=== PATIENT | male | born 1965 | race Caucasian/White ===

== ENCOUNTER 2022-11-04 15:31 | Outpatient (RCR) | payer BC, SELFPAY | END 2023-01-04 15:33 | disposition home or self-care (01) | LOC: PT 15:31 | PROVIDERS: PCP Family Medicine | DX: M54.2 Cervicalgia (principal) | CPT/HCPCS: 97012; 97110; 97140; 97162 ==

== ENCOUNTER 2024-10-14 20:05 | Emergency (ER) | payer OTHER, SELFPAY ==
[2024-10-14 20:20] VITALS: BP 130/86; PULSE 74; TEMP 36.9; O2SAT 96; BMI 27.9
--- NOTE | 2024-10-14 22:02 | PC.NURSE ---
patient push a car and heard a pop in leg
--- NOTE | 2024-10-14 22:08 | ED_ITS ---
HPI HPI - Extremity Injury (Lower) General Chief Complaint: Extremity Injury, Lower Stated Complaint: RIGHT LOWER EXTREMITY PAIN Time Seen by Provider: 10/14/24 21:44 Source: patient Mode of arrival: walk-in Limitations: no limitations History of Present Illness HPI Narrative: The patient is a very pleasant 59-year-old male who presents to the emergency department secondary to right calf pain. The patient stated a couple hours prior to arrival the patient was helping push a car. He stated that he planted his right foot and was leaning forward to try to push the car and when he went to push off on his foot he heard and felt a pop in his right calf below the muscle belly but not all the way to the ankle. Pain is a 2 out of 10. He states it is made worse in extreme ranges of motion. It is very difficult for him to walk because he cannot plantarflex or push off of his toe. He is never done anything like this before. When he was a child he had a tib-fib fracture. Related Data Home Medications ?Medication ?Instructions ?Recorded ?Confirmed No Known Home Medications 10/14/2409/17 Allergies Allergy/AdvReac Type Severity Reaction Status Date / Time No Known Drug Allergies Allergy Verified 10/14/24 20:19 Opioid HPI Opioid Management Most Recent Pain and Opioid Data: Last Pain Scale 3 10/14/24, 22:01 Review of Systems 2 ROS Narrative 10 Systems were reviewed, and unless not ed in the HPI, all other systems are reviewed, unremarkable, or noncontributory. PFSH PFS Social History Little interest or pleasure in doing things: not at all Feeling down, depressed, or hopeless: not at all Exam Narrative Exam Narrative: Prior to examining the patient, I have washed with hospital approved and provided Antiseptic Hand Instrument Technician Helper and have also applied gloves.? Prior to touching the patient, I asked for consent to examine the patient.? General: Alert and oriented, well nourished, mild distress. Eye: PERRL, EOMI, normal conjunctiva. HENT: Normocephalic, normal hearing, moist oral mucosa, no scleral icterus, Lungs: Clear to auscultation and percussion, non-labored respiration. Heart: Normal rate, regular rhythm, no murmur, gallop or edema. Musculoskeletal: Normal range of motion and strength, there is some swelling to the lower part of the patient's right calf. It is asymmetric to the left side. Patient Skin: Skin is warm, dry and pink, no rashes or lesions. Neurologic: Awake, alert, and oriented X3, CN II-XII intact. Psychiatric: Cooperative, appropriate mood and affect.? Following the conclusion of the examination, I have washed my hands thoroughly after removing examination gloves. Constitutional Vital Signs, click to edit/add: Last Vital Signs Temp 98.4 F 10/14/24 20:20 Pulse 74 10/14/24 20:20 Resp 16 10/14/24 20:20 BP 130/86 10/14/24 20:20 Pulse Ox 96 10/14/24 20:20 Course Course Hospital Course: I use an ultrasound to just look at the patient's cast. The patient definitely had more heterogeneous type of presentation in the right calf. This would be consistent with bleeding and increased edema. Vital Signs Vital signs: Vital Signs Temperature 98.4 F 10/14/24 20:20 Pulse Rate 74 10/14/24 20:20 Respiratory Rate 16 10/14/24 20:20 Blood Pressure 130/86 10/14/24 20:20 Pulse Oximetry 96 10/14/24 20:20 Temperature 98.4 F 10/14/24 20:20 Pulse Rate 74 10/14/24 20:20 Respiratory Rate 16 10/14/24 20:20 Blood Pressure 130/86 10/14/24 20:20 Pulse Oximetry 96 10/14/24 20:20 MDM - Extremity Injury (Lower) MDM Narrative Medical decision making narrative: The patient is a 59-year-old male who was pushing a car when he felt a sudden sharp pain in the back of his leg accompanying a pop. The patient stated he heard and felt it. Patient is having a difficult time ambulating since then. He states it swollen but has not improved yet. He states it is hard for him to plantarflex. Patient however does have FULL Range of Motion. Patient has a negative Adan Test. Differential Diagnosis Differential diagnosis: Likely ankle sprain and strain, acute internal derangem ent of knee, puncture wound of foot and ankle fracture Medical Records Attestation: I reviewed the patient's medical records. Imaging Data X ray Right Tib/fib: Attestation: I have reviewed the pertinent imaging results. Radiologist's impression: No acute bony process. ED physician US right calf: Attestation: I personally reviewed and interpreted this imaging study as follows: My impression: I personally used an ultrasound to compare the patient's right calf to the left calf. The patient has intact tendons however on the right side there appeared to be more of a heterogeneous fluid collection in the edema. Discharge Plan Discharge Chief Complaint: Extremity Injury, Lower Clinical Impression: Partial Achilles tendon tear Patient Disposition: Home, Self-Care Time of Disposition Decision: 22:11 Condition: Good Mode of Transportation: Private Vehicle Prescriptions / Home Meds: No Action No Known Home Medications Print Language: Citizen Of [place] Instructions: Achilles Tendon Rupture (ED), Walking Boot (ED) Additional Instructions: We have preliminarily scheduled you for an appointment with Dr. Doyle October 18 which is a Friday at 1130. I know that you have to have a more urgent evaluation so I urged you to call his office tomorrow to try to be seen sooner or may be one of his colleagues has the opportunity to get you in. Referrals: SAY GUTIERREZ [Primary Care Provider, Family Practice] - 1 week Constantin Doyle MD [Physician, Orthopedics] - 10/15/24 Referral Note: This patient has a partially ruptured Achilles tendon. Please note the patient has insurance but apparently his insurance ends October 17 and to return to get him an expedited appointment. The accident did occur on 10/14/2024. Discharge Date/Time: 10/14/24 22:35
--- NOTE | 2024-10-14 22:33 | PC.NURSE ---
patient rt foot placed in walking boot.
== END 2024-10-14 22:35 | disposition home or self-care (01) ==
PROVIDERS: Emergency Provider Emergency Medicine; PCP Family Medicine
DX: S86.011A Strain of right Achilles tendon, initial encounter (principal); X50.9XXA Other and unspecified overexertion or strenuous movements or postures, initial encounter; M79.661 Pain in right lower leg; R60.0 Localized edema
CPT/HCPCS: 73590; 99283

== ENCOUNTER 2024-10-18 10:43 | Outpatient (OUT) | payer OTHER, SELFPAY ==
--- OUTSIDE RECORDS SUMMARY | 2024-10-18 10:48 | XMS_ITS | Clinical Summary ---
Author Organization [facility] Address [address] [place] [address] Phone Care Team Providers Care Gynecological Assistant Name Role Phone Unavailable Primary Care Provider Unavailabl e Encounters Date Type Department Care Team Description 08/26/2024 6:30 PM EDT - 08/26/2024 11:59 PM EDT Hospital Encounter [facility] [address] [place] [address] Hyperlipidemia, unspecified Discharge Disposition: Home 08/26/2024 Travel from Last 3 Months Social History Tobacco Use Types Packs/Day Years Used Date Smoking Tobacco: Never Assessed Sex and Gender Information Value Date Recorded Sex Assigned at Not on file Legal Sex Male 5:42 PM EST Gender Identity Not on file Sexual Orientation Not on file Plan of Treatment Health Maintenance Due Date Last Done Comments CT Colonography 1965 Colonoscopy 1965 Colorectal Cancer Screening 1965 FIT-DNA (Cologuard) 1965 FIT 1965 HIV Screening 1965 Lipid Panel 1965 Sigmoidoscopy 1965 Yearly Adult Physical 1965 MMR Vaccines (1 of 1 - Stand sourav series) 1966 Hepatitis C Screening 1981 DTaP/Tdap/Td Vaccines (1 - Tdap) 1985 Pneumococcal Vaccine (1 of 1 - PCV) 2013 Zoster Vaccines (1 of 2) 2013 COVID-19 Vaccine (1 - 2023-2 5 season) 2024 Influenza Vaccine (Season Ended) 2025 RSV High Risk: (Elderly (60+ ) or Population) (1 - 1-dose 75+ series) 2038 HIB Vaccines Aged Out No longer eligi ble based on patient's age to complete this topic HPV Vaccines Aged Out No longer eligi ble based on patient's age to complete this topic Hepatitis A Vaccines Aged Out No long er eligible based on patient's age to complete this topic Hepatitis B Vaccines Aged Out No long er eligible based on patient's age to complete this topic IPV Vaccines Aged Out No longer eligi ble based on patient's age to complete this topic Meningococcal Vaccine Aged Out No ricardo chetan eligible based on patient's age to complete this topic Rotavirus Vaccines Aged Out No longer eligible based on patient's age to complete this topic Procedures Procedure Name Priority Date/Time Associated Diagnosis Comments CT CARDIAC SCORING WO IV CONTRAST Routine 08/26/2024 6:52 PM EDT Hyperlipidemia, unspecified from Last 3 Months Results * CT cardiac scoring wo IV contrast (08/26/2024 6:52 PM EDT) Anatomical Region Laterality Modality Thoracic, Chest Computed Tomogra phy 08/26/2024 8:05 PM EDT 08/26/2024 8:52 PM EDT Addenda Addendum by Zahira Samuel MD on 08/26/2024 8:51 PM EDT Interpreted By: Ezra Samuel, ADDENDUM: Technical: The following is to serve as an over-read for an unenhanced cardiac CT, to evaluate the extravascular structures. Contiguous unenhanced CT sections are performed from the level of the laura to the upper abdomen. Findings: The visualized portions of both lungs are clear. There is no sign of pathologic lymph node enlargement. There is no pericardial or pleural effusion. Images through the upper abdomen are unremarkable aside from a small hiatal hernia. The visualized osseous structures are intact. Impression: Small hiatal hernia. The extravascular structures are otherwise unremarkable. Signed by: Ezra Samuel 08/26/2024 8:51 PM -------- ORIGINAL REPORT -------- Dictation workstation: [id number] Impressions 08/26/2024 8:04 PM EDT 1. Coronary artery calcium score of 5*. 2. DEWEY 33rd Percentile for age, gender, and race in asymptomatic patients. *Coronary Artery Agatston score Score risk Very low 1-99 Mildly increased 100-299 Moderately increased >300 Moderate to severely increased >800 Hua et al. JCCT 2016 (http://dx.doi.org/10.1016/j.jcct.2016.11.003) DEWEY Percentile In general, greater than 75th percentile for age, gender, and race is considered to be a higher relative risk and higher lifetime risk condition. Greater than 75th percentile=moderate to severely increased relative risk irrespective of the score. Advise using DEWEY 10 year CHD risk calculator below for better discrimination of risk. DEWEY 10-Year CHD Risk with Coronary Artery Calcification can be calcuate using link below https://www.dewey-nhlbi.org/MESACHDRisk/MesaRiskScore/RiskScore.aspx Erna arrington al. JACC 2015 (http://dx.doi.org/10.1016/j.j acc.2015.08.035) Reading Half Section Ironer: Dr. Ezra uGpta, Date: 08/26/2024 8:04 pm Signed by: Ezra Gupta 08/26/2024 8:04 PM Dictation workstation: [id number] Narrative 08/26/2024 8:04 PM EDT Interpreted By: Ezra Gupta, STUDY: CT CARDIAC SCORING WO IV CONTRAST; 08/26/2024 6:52 pm INDICATION: Signs/Symptoms:HYPERLIPIDEMIA. COMPARISON: None. ACCESSION NUMBER(S): [id number] ORDERING CLINICIAN: SAY GUTIERREZ TECHNIQUE: Using prospective ECG gating, CT scan of the coronary arteries was performed without intravenous contrast. Coronary calcium scoring was performed according to the method of Agatston. CT Dose-Length Product (DLP): 81.8 mGy*cm CT Dose Reduction Employed: Yes, prospective gating, iterative reconstruction. FINDINGS: The score and distribution of calcium in the coronary arteries is as follows: LM 0 LAD 5 LCx 0 RCA 0 Total 5 The visualized ascending thoracic aorta measures 3.4 cm in diameter. The heart is normal in size. No pericardial effusion is present. The main pulmonary artery, right and left pulmonary artery are normal in size. Procedure Note Ezra Gupta DO / Zahira Samuel MD - 08/26/2024 Interpreted By: Ezra Gupta, STUDY: CT CARDIAC SCORING WO IV CONTRAST; 08/26/2024 6:52 pm INDICATION: Signs/Symptoms:HYPERLIPIDEMIA. COMPARISON: None. ACCESSION NUMBER(S): [id number] ORDERING CLINICIAN: SAY GUTIERREZ TECHNIQUE: Using prospective ECG gating, CT scan of the coronary arteries was performed without intravenous contrast. Coronary calcium scoring was performed according to the method of Agatston. CT Dose-Length Product (DLP): 81.8 mGy*cm CT Dose Reduction Employed: Yes, prospective gating, iterative reconstruction. FINDINGS: The score and distribution of calcium in the coronary arteries is as follows: LM 0 LAD 5 LCx 0 RCA 0 Total 5 The visualized ascending thoracic aorta measures 3.4 cm in diameter. The heart is normal in size. No pericardial effusion is present. The main pulmonary artery, right and left pulmonary artery are normal in size. IMPRESSION: 1. Coronary artery calcium score of 5*. 2. DEWEY 33rd Percentile for age, gender, and race in asymptomatic patients. *Coronary Artery Agatston score Score risk Very low 1-99 Mildly increased 100-299 Moderately increased >300 Moderate to severely increased >800 Hua et al. JCCT 2016 (http://dx.doi.org/10.1016/j.jcct.2016.11.003) DEWEY Percentile In general, greater than 75th percentile for age, gender, and race is considered to be a higher relative risk and higher lifetime risk condition. Greater than 75th percentile=moderate to severely increased relative risk irrespective of the score. Advise using DEWEY 10 year CHD risk calculator below for better discrimination of risk. DEWEY 10-Year CHD Risk with Coronary Artery Calcification can be calcuate using link below https://www.dewey-nhlbi.org/MESACHDRisk/MesaRiskScore/RiskScore.aspx Erna et al. JACC 2015 (http://dx.doi.org/10.1016/j.j acc.2015.08.035) Reading Half Section Ironer: Dr. Ezra Gupta, Date: 08/26/2024 8:04 pm Signed by: Ezra Gupta 08/26/2024 8:04 PM Dictation workstation: [id number] Say Gutierrez DO IMG CT PROCEDURES Edited Resul t - Final from Last 3 Months
--- OUTSIDE RECORDS SUMMARY | 2024-10-18 10:48 | XMS_ITS | Encounter Summary ---
Author Organization [facility] Address [address] [place] [id number] Phone Care Team Providers Care Cadworx Piping Designer Name Role Phone Unavailable Primary Care Provider Unavailabl e Reason for Referral * Imaging (Routine) - Pending Review Specialty Diagnoses / Procedures Referred By Contakila t Referred To Contact Radiology Diagnoses Hyperlipidemia, unspecified Procedures CT cardiac scoring wo IV contrast Say Gutierrez DO [address] [place] [address] Phone: tel: fax: Referral ID Status Reason Start Date Expiration Date Visits Requested Visits Authorized [id number] Pending Review Perform Procedure 07/09/2024 07/09/2025 1 1 Encounter Details Date Type Department Care Team (Late st Contact Info) Description 07/09/2024 Transcribe Orders [facility] CARE CONNECTIONS VIRTUAL [address] [place] [address] Say Gutierrez DO [address] [place], [place] [id number] Hyperlipidemia, unspecified (Primary Dx) Social History Tobacco Use Types Packs/Day Years Used Date Smoking Tobacco: Never Assessed Sex and Gender Information Value Date Recorded Sex Assigned at Not on file Legal Sex Male 5:42 PM EST Gender Identity Not on file Sexual Orientation Not on file documented as of this encounter Plan of Treatment Not on file documented as of this encounter Results * CT cardiac scoring wo IV [...] PM -------- ORIGINAL REPORT -------- Dictation workstation: [id number] Impressions 08/26/2024 8:04 PM EDT 1. Coronary [...] arrington al. JACC 2015 (http://dx.doi.org/10.1016/j.j acc.2015.08.035) Reading Ball Holder: Dr. Ezra Gupta, Date: 08/26/2024 8:04 pm Signed by: Ezra Gupta 08/26/2024 8:04 PM Dictation workstation: [id number] Narrative 08/26/2024 8:04 PM EDT Interpreted By: Ezra Gupta, STUDY: CT CARDIAC SCORING WO IV CONTRAST; 08/26/2024 6:52 pm INDICATION: Signs/Symptoms:HYPERLIPIDEMIA. COMPARISON: None. ACCESSION NUMBER(S): [id number] ORDERING CLINICIAN: SAY GUTIERREZ TECHNIQUE: Using prospective [...] pm INDICATION: Signs/Symptoms:HYPERLIPIDEMIA. COMPARISON: None. ACCESSION NUMBER(S): [id number] ORDERING CLINICIAN: SAY GUTIERREZ TECHNIQUE: Using prospective [...] link below https://www.dewey-nhlbi.org/MESACHDRisk/MesaRiskScore/RiskScore.aspx Erna arrington al. JACC 2014 (http://dx.doi.org/10.1016/j.j acc.2015.08.035) Reading Ball Holder: Dr. Ezra Gupta, Date: 08/26/2024 8:04 pm Signed by: Ezra Gupta 08/26/2024 8:04 PM Dictation workstation: [id number] Say Gutierrez DO IMG CT PROCEDURES Edited Resul t - Final documented in this encounter Visit Diagnoses Diagnosis Hyperlipidemia, unspecified- Primary Hyperlipidemia, unspecified documented in this encounter
--- OUTSIDE RECORDS SUMMARY | 2024-10-18 10:48 | XMS_ITS | Patient Health Record ---
Author Organization [facility] Address [address] [place] [address] Care Team Providers Care Field Installation Technician Name Role Phone Constantin Doyle Unavailable [phone] Allergies No Known Allergies Results Component Value Reference Range Notes Surgery Scheduling (Not yet reviewed by provider) Interpretation: Performing Lab: Notes/Report: Social Sec number: [id number] Primary Insurance Company: [employer] [facility] Surgeon/Assist: OSAGE BEACH Surgery Location: [facility] Surgery Date & Time: 10/25/24 Surgery End Time: ONE HOUR Procedure: RIGHT [place]CHILLES TENDO N REPAIR, [id number] Diagnosis: RUPTURE OF RIGHT ACH ILLES TENDON Admission Type: OUTPATIENT Anesthesia Type/CPNB: GENERAL Post-op Appointment Date: 11/08/24 @ 7:50AM Latex Allergy NO Lab Location: [facility] Lab Date/Time: PAT WITH APOPKA 10/18/24 @ 11:00AM Clinical Analyst: KYLE Reason For Referral Reason CAREY.....PLEASE OBTAI N AUTHORIZATION FOR RIGHT ACHILLES TENDON REPAIR Jonathan Steiner 10/18/2024 09:57:13 AM >Cpt code 15035 Diagnosis 1 Rupture of right Ach illes tendon, initial encounter (S86.011A) Referral Organization [facility] Referring Provider First Name Constantin Referring Provider Last Name Vivek Referring Provider Speciality Orthopedic Surgery Referred Organization [facility] Surgery Scheduling Referred Address [address] [place],[address], General Notes Isabela Cohn 025 09:44:57 AM >NEED SX CODE Jatin CONRAD Chad 10/18/2024 09:57:13 AM >Cpt code 86739Lalit Amy 10/18/2024 10:08:32 AM >PER [facility] CODE MAIL MANAGER, NO AUTH REQUIRED MA NOTIFIED REF FAXED TO [place] Referral Priority Urgent Reason APPROVED............ .....PLEASE OBTAIN AUTHORIZATION FOR MRI RIGHT ANKLE Diagnosis 1 Rupture of right Ach illes tendon, initial encounter (S86.011A) Referral Organization [facility] Referring Provider First Name Constantin Referring Provider Last Name Doyle Referring Provider Speciality Orthopedic Surgery Referred Organization [facility] jay Referred Address [place], [place], Procedure 1 MRI Joint Lower Ext w/o Dye (75935) General Notes Isabela Cohn 025 09:33:54 AM >APPROVED PER [facility] AUTH #[id number] VALID 10/18/2024-12/02/2024 COPY IN CHART MA NOTIFIED REF FAXED TO Lalit CASTELAN Amy 10/18/2024 09:38:00 AM >SECONDARY IS A SUPPLEMENT, Hiral Reed 10/18/2024 10:13:32 AM > Faxed order to [place] Referral Priority Stat Social History Tobacco Use: Social History Observation [...] 10/18/2024 Encounters Encounter Location Date Provider Diagnosis [facility] Office [address] [place] [address] [place] [address] 10/18/2024 Constantin Doyle Rupture of right Achilles tendon, initial encounter [...] & P. Import medication Plan Of Treatment Pending Test Test Name Order Date MRI : Ankle W/O Contrast Right - 51902 0 10/18/2024 CBC with diff, BMP, EKG 10/18/2024 Surgery Scheduling 10/18/2024 Next Appt Details Provider Name:Constantin Rodriguez and, 10/25/2024 02:00:00 PM, [address] [place], [address], Provider Name:Constantin Rodriguez and, 11/08/2024 07:50:00 AM, [address] [facility], [place], [address], Insurance Providers Payer Name Payer Address Payer Phone Subscriber Number Group Number Insured Name Patient Relationship to Insured Coverage Start Date Coverage End Date [facility] [address] [address] [place] [address] [id number] Syed Ward Self - patient is the insured 5 [employer] [employer] [address] [place] [address] [phone] [id number] Syed Ward Self - patient is the insured 5
--- NOTE | 2024-10-18 11:10 | ECG_ITS ---
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 Measurements Intervals [place] Rate: 78 P: 59 NE: 182 QRS: 48 QRSD: 93 T: 38 QT: 356 QTc: 407 Interpretive Statements SINUS RHYTHM Normal ECG No previous ECG available for comparison Electronically Signed On 10-18-2024 17:59:33 EDT by JAIME GUTIERREZ M.D.
[2024-10-18 11:52] LABS: Basophils Percent Auto 0.6 % (0.2-2.0); Eosinophils Absolute Auto 0.1 10^3/uL (0.0-0.7); Eosinophils Percent Auto 1.3 % (0.9-7.0); Hematocrit 47.7 % (42.0-54.0); Hemoglobin 15.8 g/dL (14.0-18.0); Immature Granulocytes Abs Auto 0.02 10^3/uL (0.00-0.03); Immature Granulocytes Pct Auto 0.4 % (0.0-0.5); Lymphocytes Absolute Auto 1.1 10^3/uL (1.2-3.8); Lymphocytes Percent Auto 23.4 % (20.5-60.0); Mean Corpuscular HGB Conc 33.1 g/dL (29.9-35.2); Mean Corpuscular Hemoglobin 29.1 pg (25.9-34.0); Mean Corpuscular Volume 87.8 fL (80.0-94.0); Mean Platelet Volume 11.9 fL (9.5-13.5); Monocytes Absolute Auto 0.4 10^3/uL (0.3-0.8); Monocytes Percent Auto 8.9 % (1.7-12.0); Neutrophils Percent Auto 65.4 % (43.0-75.0); Platelet Count 161 10^3/uL (150-450); Red Blood Count 5.43 10^6/uL (4.70-6.10); Red Cell Distribution Width 13.5 % (11.0-15.0); White Blood Count 4.6 10^3/uL (4.0-11.0)
[2024-10-18 11:56] LABS: Anion Gap 12.5; BUN Creatinine Ratio 18.6; Calcium 9.4 mg/dL (8.5-10.1); Carbon Dioxide 27.9 mmol/L (21.0-32.0); Chloride 108 mmol/L (98-107); Estimated GFR (African America >60 (>=60 mL/min/1.73m^2); Estimated GFR (Non-African Ame >60 (>=60 mL/min/1.73m^2); Glucose 111 mg/dL (74-106); Potassium 4.4 mmol/L (3.5-5.1); Sodium 144 mmol/L (136-145)
== END 2024-10-18 10:44 | disposition home or self-care (01) ==
LOC: PST 10:46
PROVIDERS: PCP Family Medicine; Visit Provider Orthopaedic Surgery
DX: Z01.810 Encounter for preprocedural cardiovascular examination (principal); Z01.812 Encounter for preprocedural laboratory examination; S86.011A Strain of right Achilles tendon, initial encounter
CPT/HCPCS: 80048; 85025; 93005

== ENCOUNTER 2024-10-21 10:13 | Outpatient (OUT) | payer OTHER, SELFPAY ==
--- OUTSIDE RECORDS SUMMARY | 2024-10-21 10:15 | XMS_ITS | Clinical Summary ---
Author Organization [facility] Address [address] [place] [address] Phone Care Team Providers Care Senior Oracle Pl Sql Developer Name Role Phone Unavailable Primary Care Provider Unavailabl e Encounters Date Type Department Care Team Description 08/26/2024 6:30 PM EDT - 08/26/2024 11:59 PM EDT Hospital Encounter [place] [address] [place] [address] Hyperlipidemia, unspecified Discharge Disposition: Home [...] Vaccines (1 of 2) 2013 COVID-19 Vaccine ( - 2023-2 5 season) 2024 Influenza Vaccine [...] PM -------- ORIGINAL REPORT -------- Dictation workstation: [id number] Impressions 08/26/2024 8:04 PM EDT 1. Coronary [...] arrington al. JACC 2015 (http://dx.doi.org/10.1016/j.j acc.2015.08.035) Reading Outdoor Landscape Architect: Dr. Ezra Gupta, Date: 08/26/2024 8:04 pm Signed by: Ezra Gupta 08/26/2024 8:04 PM Dictation workstation: [id number] Narrative 08/26/2024 8:04 PM EDT Interpreted By: Ezra Gupta, STUDY: CT CARDIAC SCORING WO IV CONTRAST; 08/26/2024 6:52 pm INDICATION: Signs/Symptoms:HYPERLIPIDEMIA. COMPARISON: None. ACCESSION NUMBER(S): [id number] ORDERING CLINICIAN: SAY GUTIERREZ TECHNIQUE: Using prospective [...] pm INDICATION: Signs/Symptoms:HYPERLIPIDEMIA. COMPARISON: None. ACCESSION NUMBER(S): [id number] ORDERING CLINICIAN: SAY GUTIERREZ TECHNIQUE: Using prospective [...] et al. JACC 2015 (http://dx.doi.org/10.1016/j.j acc.2015.08.035) Reading Outdoor Landscape Architect: Dr. Ezra Gupta, Date: 08/26/2024 8:04 pm Signed by: Ezra Gupta 08/26/2024 8:04 PM Dictation workstation: [id number] Say Gutierrez DO IMG CT PROCEDURES Edited Resul t - Final from Last 3 Months
--- OUTSIDE RECORDS SUMMARY | 2024-10-21 10:15 | XMS_ITS | Patient Health Record ---
Author Organization [facility] Address [address] [place] [address] Care Team Providers Care Printing Services Coordinator Name Role Phone VivekConstantin Unavailable [phone] Allergies No Known Allergies Results Component Value Reference Range Notes Surgery Scheduling (Not yet reviewed by provider) Interpretation: Performing Lab: Notes/Report: Social Sec number: [id number] Primary Insurance Company: [employer] [facility] Surgeon/Assist: DUMAS Surgery Location: [facility] Surgery Date & Time: 10/25/24 Surgery End Time: ONE HOUR Procedure: RIGHT ACHILLES TENDO N REPAIR, [address] Diagnosis: RUPTURE OF RIGHT ACH ILLES TENDON Admission Type: OUTPATIENT Anesthesia Type/CPNB: GENERAL Post-op Appointment Date: 11/08/24 @ 7:50AM Latex Allergy NO Lab Location: [facility] Lab Date/Time: PAT WITH TIPPO 10/18/24 @ 11:00AM Salon Receptionist: KYLE MELGAR with diff, BMP, EKG Reviewed date:10/19/2024 09:39:01 AM Interpretation: Performing Lab: Notes/Report: Reason For Referral Reason CAREY.....PLEASE OBTAI N AUTHORIZATION FOR RIGHT ACHILLES TENDON REPAIR Jonathan Steiner 10/18/2024 09:57:13 AM >Cpt code 98706 Diagnosis 1 Rupture of right Ach illes tendon, initial encounter (S86.011A) Referral Organization [facility] Referring Provider First Name Constnatin Referring Provider Last Name Vivek Referring Provider Speciality Orthopedic Surgery Referred Organization [facility] Surgery Scheduling Referred Address [address] [place],[address], General Notes Isabela Cohn 09:44:57 AM >NEED SX CODE Jatin CONRAD Chad 10/18/2024 09:57:13 AM >Cpt code 10288 Isabela Cohn 10/18/2024 10:08:32 AM >PER [facility] CODE UNEMPLOYMENT INSURANCE DIRECTOR, NO AUTH REQUIRED MA NOTIFIED REF FAXED TO [facility] Referral Priority Urgent Reason APPROVED............ .....PLEASE OBTAIN AUTHORIZATION FOR MRI RIGHT ANKLE Diagnosis 1 Rupture of right Ach illes tendon, initial encounter (S86.011A) Referral Organization [facility] [place] [facility] Referring Provider First Name Constantin Referring Provider Last Name Vivek Referring Provider Speciality Orthopedic Surgery Referred Organization [facility] jay Referred Address [place], [place], Procedure 1 MRI Joint Lower Ext w/o Dye (487[address]) General Notes Isabela Cohn 025 09:33:54 AM >APPROVED PER [facility] AUTH #[id number] VALID 10/18/2024-12/02/2024 COPY IN CHART MA NOTIFIED REF FAXED TO Lalit CASTELAN Amy 10/18/2024 09:38:00 AM >SECONDARY IS A SUPPLEMENT, Hiral Reed 10/18/2024 10:13:32 AM > Faxed order to [place] Referral Priority Stat Social History Tobacco Use: [...] 10/18/2024 Encounters Encounter Location Date Provider Diagnosis [facility] [address] [place] [address] [place] [address] 10/18/2024 Constantin Vivek Rupture of right Achilles tendon, initial encounter [...] MRI : Ankle W/O Contrast Right - 52249 0 10/18/2024 Surgery Scheduling 10/18/2024 Next Appt Details Provider Name:Constantin Rodriguez and, 10/25/2024 02:00:00 PM, [address] [place], [address], Provider Name:Constantin Rodriguez and, 11/08/2024 07:50:00 AM, [address] [facility], [facility] [place], [address], Insurance Providers Payer Name Payer Address Payer Phone Subscriber Number Group Number Insured Name Patient Relationship to Insured Coverage Start Date Coverage End Date [facility] [address] [address] [place] [address] [phone] [id number] Syed Ward Self - patient is the insured 5 [facility] [employer] [address] [place] [phone] [id number] Syed Ward Self - patient is the insured 5
--- OUTSIDE RECORDS SUMMARY | 2024-10-21 10:15 | XMS_ITS | Encounter Summary ---
Author Organization [facility] Address [address] [place] [id number] Phone Care Team Providers Care Die Trouble Shooter Name Role Phone Unavailable Primary Care Provider Unavailabl e Reason for Referral * Imaging (Routine) - Pending Review Specialty Diagnoses / Procedures Referred By Contakila t Referred To Contact Radiology Diagnoses Hyperlipidemia, unspecified Procedures CT cardiac scoring wo IV contrast Say Gutierrez DO [address] [place] [address] Phone: tel: fax: Referral ID Status Reason Start Date Expiration Date Visits Requested Visits Authorized [id number] Pending Review Perform Procedure 07/09/2024 07/09/2025 1 1 Encounter Details Date Type Department Care Team (Late st Contact Info) Description 07/09/2024 Transcribe Orders [facility] CARE CONNECTIONS VIRTUAL [address] [place] [address] Say Gutierrez DO [address] [place], [place] [id number] Hyperlipidemia, unspecified (Primary Dx) Social History Tobacco [...] PM -------- ORIGINAL REPORT -------- Dictation workstation: [id number] Impressions 08/26/2024 8:04 PM EDT 1. Coronary [...] arrington al. JACC 2015 (http://dx.doi.org/10.1016/j.j acc.2015.08.035) Reading Prints And Drawings Curator: Dr. Ezra Gupta, Date: 08/26/2024 8:04 pm Signed by: Ezra Gupta 08/26/2024 8:04 PM Dictation workstation: [id number] Narrative 08/26/2024 8:04 PM EDT Interpreted By: Ezra Gupta, STUDY: CT CARDIAC SCORING WO IV CONTRAST; 08/26/2024 6:52 pm INDICATION: Signs/Symptoms:HYPERLIPIDEMIA. COMPARISON: None. ACCESSION NUMBER(S): [id number] ORDERING CLINICIAN: SAY GUTIERREZ TECHNIQUE: Using prospective [...] pm INDICATION: Signs/Symptoms:HYPERLIPIDEMIA. COMPARISON: None. ACCESSION NUMBER(S): [id number] ORDERING CLINICIAN: SAY GUTIERREZ TECHNIQUE: Using prospective [...] arrington al. JACC 2014 (http://dx.doi.org/10.1016/j.j acc.2015.08.035) Reading Prints And Drawings Curator: Dr. Ezra Gupta, Date: 08/26/2024 8:04 pm Signed by: Ezra Gupta 08/26/2024 8:04 PM Dictation workstation: [id number] Say Gutierrez DO IMG CT PROCEDURES Edited Resul t - Final documented in this encounter Visit Diagnoses Diagnosis Hyperlipidemia, unspecified- Primary Hyperlipidemia, unspecified documented in this encounter
--- NOTE | 2024-10-21 10:17 | MR_ITS ---
[address] [address] Patient Name: LUIS E WARD MRN: [id number] date: 1965 Sex: M Assigned Patient Location: MRI Current Patient Location: MRI Accession/Order Number: [id number] Exam Date: 10/21/2024 12:25 Report Date: 10/21/2024 12:31 At the request of: ZEFERINO MCCLELLAN MD Procedure: MR ankle RT wo con MR ankle RT wo con 10/21/2024 11:17 AM SIGNS AND SYMPTOMS: ^Rupture Of Right Achilles Tendon PROTOCOL: Multiplanar multisequence MR images of the right ankle without contrast COMPARISON: None FINDINGS: Alignment: Normal. Fluid: Tibiotalar: No joint effusion. Subtalar: No joint effusion. Medial: Medial malleolus: Normal. Tendons: Posterior tibial tendon: Intact. Flexor digitorum longus: Intact. Flexor hallucis longus: Intact. Ligaments: Deltoid ligament complex - superficial: Intact. Deltoid ligament complex - deep: Intact. . Lateral: Lateral malleolus: Normal. Retromalleolar groove: Normal. Tendons: Peroneus longus: Intact. Peroneus brevis: Intact Peroneal retinaculum: Intact. Ligaments: Anterior inferior tibiofibular (syndesmosis): Intact. Posterior inferior tibiofibular (syndesmosis): Intact. Anterior talofibular ligament: Intact. Calcaneofibular ligament: Intact. Posterior talofibular ligament: Intact. Posterior: Posterior talus: Normal. Intermalleolar ligament: Intact. Achilles tendon: There is a full-thickness tear of the Achilles tendon near the musculotendinous junction. The proximal tendon fibers are retracted 4.2 cm.. Plantar fascia: Intact. Anterior: Tendons: Anterior tibial tendon: Intact. Extensor hallucis longus: Intact. Extensor digitorum longus: Intact. Tibiotalar joint: Preserved. Subtalar joint: Preserved. Bones (other than subarticular marrow): Normal. Muscles: Normal Tarsal tunnel: Normal. Sinus tarsi: Normal. MR/MR ankle RT wo con IMPRESSION: There is a full-thickness tear of the Achilles tendon near the musculotendinous junction. The proximal tendon fibers are retracted 4.2 cm. Impression dictated by: Anders Gee M.D. 10/21/2024 12:31 PM Dictation Location: [place] [address] Electronically authenticated by: [id number] Y Date: 10/21/2024 12:31
== END 2024-10-21 10:14 | disposition home or self-care (01) ==
LOC: MRI 10:13
PROVIDERS: PCP Family Medicine; Visit Provider Orthopaedic Surgery
DX: S86.011A Strain of right Achilles tendon, initial encounter (principal)
CPT/HCPCS: 73721

== ENCOUNTER 2024-10-25 12:27 | Day surgery (SDC) | payer OTHER, SELFPAY ==
--- OUTSIDE RECORDS SUMMARY | 2024-10-18 03:30 | XMS_ITS ---
Author Organization [facility] Address [address] [place] [address] Care Team Providers Care Harvest Worker Name Role Phone Constantin Doyle Unavailable [phone] Allergies No Known Allergies Results Component Value Reference Range Notes CBC with diff, BMP, EKG Reviewed date:10/19/2024 09:39:01 AM Interpretation: Performing Lab: Notes/Report: Surgery Scheduling (Not yet reviewed by provider) Interpretation: Performing Lab: Notes/Report: Social Sec number: [id number] Primary Insurance Company: [employer] Surgeon/Assist: POLSON Surgery Location: [facility] Surgery Date & Time: 10/25/24 Surgery End Time: ONE HOUR Procedure: RIGHT ACHILLES TENDO N REPAIR, 14917 Diagnosis: RUPTURE OF RIGHT ACH ILLES TENDON Admission Type: OUTPATIENT Anesthesia Type/CPNB: GENERAL Post-op Appointment Date: 11/08/24 @ 7:50AM Latex Allergy NO Lab Location: [facility] Lab Date/Time: PAT WITH NOGALES 10/18/24 @ 11:00AM Activity Therapist: KYLE Reason For Referral Reason APPROVED............ .....PLEASE OBTAIN AUTHORIZATION FOR MRI RIGHT ANKLE Diagnosis 1 Rupture of right Ach illes tendon, initial encounter (S86.011A) Referral Organization [facility] Referring Provider First Name Constantin Referring Provider Last Name Eleuterio Referring Provider Speciality Orthopedic Surgery Referred Organization [facility] Paul thompson Referred Address [place], [place], Procedure 1 MRI Joint Lower Ext w/o Dye (39100) General Notes Isabela Cohn 025 09:33:54 AM >APPROVED PER [facility] AUTH #[id number] VALID 10/18/2024-12/02/2024 COPY IN CHART MA NOTIFIED REF FAXED TO Lalit CASTELAN Amy 10/18/2024 09:38:00 AM >SECONDARY IS A SUPPLEMENT, Hiral Reed 10/18/2024 10:13:32 AM > Faxed order to [facility] Referral Priority Stat Reason CAREY.....PLEASE OBTAI N AUTHORIZATION FOR RIGHT ACHILLES TENDON REPAIR Jonathan Steiner 10/18/2024 09:57:13 AM >Cpt code 18118 Diagnosis 1 Rupture of right Ach illes tendon, initial encounter (S86.011A) Referral Organization [facility] Referring Provider First Name Constantin Referring Provider Last Name Doyle Referring Provider Speciality Orthopedic Surgery Referred Organization [facility] Surgery Scheduling Referred Address [address] [place] [id number], General Notes Isabela Cohn 025 09:44:57 AM >NEED SX CODE PLEASEJatin Chad 10/18/2024 09:57:13 AM >Cpt code 97348Lalit Amy 10/18/2024 10:08:32 AM >PER [facility] CODE FICTION AND NONFICTION WRITER PROSE, NO AUTH REQUIRED MA NOTIFIED REF FAXED TO NOGALES Referral Priority Urgent REASON FOR VISIT [facility] ER RT ACHILLES TEAR Social History Tobacco Use: Social History Observation Description Date Details (start date - stop date) Never Smoker NA - NA AUDIT-C (Standard) Question Answer Notes Did you have a drink containing alcohol in the p ast year? No Points 0 Interpretation Negative Tobacco Control (Standard) Question Answer Notes Tobacco use: Nonsmoker Vital Signs Height 5'9 in 10/18/2024 Weight 185 lbs 10/18/2024 BMI 27.32 10/18/2024 Encounters Encounter Location Date Provider Diagnosis [facility] [address] [place] [address] [place] [address] 10/18/2024 Constantin Eleuterio Rupture of right Achilles tendon, initial encounter S86.011A and Pre-op testing Z01.818 Assessments Encounter Date Diagnosis (ICD Code) Assessment Notes Treatment Notes Treatment Clinical Notes Section Notes 10/18/2024 Rupture of right Achilles tendon, initial encounter (ICD-10 - S86.011A) 10/18/2024 Pre-op testing (ICD-10 - Z01.818) 10/18/2024 Other For his right Achilles rupture I have recommended surgical repair. I discussed risks of surgery including but not limited to chronic pain and loss of sensation along the plantar aspect of the foot which could be permanent. I recommended an MRI scan for preoperative planning and to evaluate the location of the tear. He understands risks of surgery and has elected to proceed. This will serve as the H & P. Import medication Plan Of Treatment Treatment Notes Assessment Notes Other For his right Achilles rupture I have recommended surgical repair. I discussed risks of surgery including but not limited to chronic pain and loss of sensation along the plantar aspect of the foot which could be permanent. I recommended an MRI scan for preoperative planning and to evaluate the location of the tear. He understands risks of surgery and has elected to proceed. This will serve as the H & P. Import medication Pending Test Test Name Order Date MRI : Ankle W/O Contrast Right - 83140 0 10/18/2024 Surgery Scheduling 10/18/2024 Referrals Referral Date Details 10/18/2024 10/18/2024, APPROVED .................PLEASE OBTAIN AUTHORIZATION FOR MRI RIGHT ANKLE, [place], [place] 10/18/2024 10/18/2024, CAREY..... PLEASE OBTAIN AUTHORIZATION FOR RIGHT ACHILLES TENDON REPAIR Jonathan Steiner 10/18/2024 09:57:13 AM >Cpt code 33239, [address] [place], [address], Next Appt Details Follow Up: POST OP, Reason: Provider Name:Constantin Rodriguez and, 10/25/2024 02:00:00 PM, [address] [facility], [place], [address], Provider Name:Constantin Rodriguez and, 11/08/2024 07:50:00 AM, [address] [facility], [address], [place], [address], Progress Notes * Syed WARDDOB:1965 (59 yo M)Acc No.[id number]:10/18/2024 Patient: Syed ESPAÑA Provider: Paul Doyle MD :1965 A ge:59 Y S ex:Male Date:10/18/2024 Address:[address] [place] [address] [place], [id number] Subjective: * Chief Complaints: * 1 . [facility] ER RT ACHILLES TEAR. * HPI: G eneral Follow Up Information: Patient presents today for a right Achilles tendon rupture. On October 14 he was helping a friend trying to push a VW van off of a trailer. He felt a pop in his right Achilles with the acute onset of pain. He was seen in the emergency room diagnosed with an Achilles rupture and referred here for evaluation. He denies having any pain prior to this. * ROS: C onstitutional: Chills N o. L oss of Appetite N o. F ever/Chills N o. M arked Fatigue N o. R espiratory: Emphysema No,. L drake Disease No. S leep Apnea y es. C ardiovascular: Chest pain No. H eart or Chest Pain No. ? * Medical History: M edical History Verified. * Family History: N o Family History documented.. * Social History: A KALIA-C (Standard) D id you have a drink containing alcohol in the past year? N o,?Points 0 , I nterpretation N egative. T obacco Control (Standard) T obacco use: N onsmoker. * Medications: N one * Allergies: N .K.D.A. Objective: * Vitals: H t: 5'9 , Wt: 185 lbs, BMI:27.32. * Examination: G eneral examination: O n exam today he is in no obvious distress. He has a positive Adan's test. He has a defect in the more proximal Achilles which is potentially at the muscle tendon junction. Grossly neurovascularly intact. X -ray Imaging Studies: X -rays of his right leg are unremarkable. * Physical Examination: H eart: Rhythm r egular. H eart sounds n ormal. A bdomen: Scars W ell healed scar abdominal surgery Soft/NT/ND. L ungs:CTAB. Assessment: * Assessment: 1. R upture of right Achilles tendon, initial encounter - S86.011A (Primary) 2 . P re-op testing - Z01.818 Plan: * Treatment: 2. P re-op testing L AB: CBC with diff, BMP, EKG (Collection Date & Time - 10/19/2024) 3. O thers Notes: For his right Achilles rupture I have recommended surgical repair. I discussed risks of surgery including but not limited to chronic pain and loss of sensation along the plantar aspect of the foot which could be permanent. I recommended an MRI scan for preoperative planning and to evaluate the location of the tear. He understands risks of surgery and has elected to proceed. This will serve as the H & P. Import medication * Labs: * L ab: Surgery Scheduling (Collection Date & Time - 10/18/2024) Value Reference Range S ocial Sec number: [id number] * [employer] Insurance Company: [employer] * S urgeon/Assist: ELEUTERIO * S urgery Location: [facility] * S urgery Date & Time: 10/25/24 * S urgery End Time: ONE HOUR * P rocedure: RIGHT ACHILLES TENDON REPAIR, 69471 * D iagnosis: RUPTURE OF RIGHT ACHILLES TENDON * A dmission Type: OUTPATIENT * A nesthesia Type/CPNB: GENERAL * P ost-op Appointment Date: 11/08/24 @ 7:50AM * L atex Allergy NO * L ab Location: [facility] * L ab Date/Time: PAT WITH NOGALES 10/18/24 @ 11:00AM * S cheduler: KYLE * Follow Up: P OST OP Forms: * Images: * Electronic signature of Patric Doyle MD on 10/25/2024 at 12:32 PM EDT Sign off status: Pending * Provider: Paul Doyle MD Date: 10/18/2024 Generated for Rachel garcia/Smitha/Dangsmitting on: 10/25/2024 12:32 PM EDT History and Physical Notes * HPI (History of Present Illness) Category Sub-Category Detail Notes Category Not es General Follow Up Information Patient presents tod ay for a right Achilles tendon rupture. On October 14 he was helping a friend trying to push a VW van off of a trailer. He felt a pop in his right Achilles with the acute onset of pain. He was seen in the emergency room diagnosed with an Achilles rupture and referred here for evaluation. He denies having any pain prior to this. Physical Examination Category Sub-Category Detail Notes Section Note s Heart Rhythm regular Lungs:CTAB Heart sounds normal Abdomen Scars Well healed scar abdominal s urgerySoft/NT/ND Lungs:CTAB Examination Category Sub-Category Detail Notes Category Not es General examination On exam today he is in no obvious distress. He has a positive Adan's test. He has a defect in the more proximal Achilles which is potentially at the muscle tendon junction. Grossly neurovascularly intact. X-ray Imaging Studies X-rays of his right leg are unremarkable Consultation Request Notes Referral Date Referring Provider Referred Provider Not es 10/18/2024 Constantin Doyle , APPROVED... ..............PLEASE OBTAIN AUTHORIZATION FOR MRI RIGHT ANKLE 10/18/2024 Constantin Doyle , CAREY.....PLE ASE OBTAIN AUTHORIZATION FOR RIGHT ACHILLES TENDON REPAIR Jonathan Steiner 10/18/2024 09:57:13 AM >Cpt code 46177
[2024-10-18 11:22] VITALS: BP 137/83; PULSE 83; TEMP 36.3; O2SAT 97; BMI 28.5
[2024-10-25] VITALS (11 sets, daily range): BP systolic 107–147; BP diastolic 48–95; PULSE 68–90; TEMP 36.2–36.3; O2SAT 94–99; BMI 27.9
--- OUTSIDE RECORDS SUMMARY | 2024-10-25 10:00 | XMS_ITS ---
Author Organization [facility] Address [address] [place] [address] Care Team Providers Care Lap Polisher Name Role Phone Constantin Doyle Unavailable [phone] REASON FOR VISIT RIGHT ACHILLES TENDON REPAIR Encounters Encounter Location Date Provider Diagnosis [facility] Outpatient [address] [place] [address] 10/25/2024 Constantin Doyle Plan Of Treatment Next Appt Details Provider Name:Constantin Rodriguez and, 10/25/2024 02:00:00 PM, [address] [place], [address], Provider Name:Constantin Rodriguez and, 11/08/2024 07:50:00 AM, [address] [facility], [address], [place], [address], Progress Notes * Syed WARDDOB:1965 (59 yo M)Acc No.[id number]:10/25/2024 Patient: Tolu MORA Syed Provider: Paul Doyle MD :1965 A ge:59 Y S ex:Male Date:10/25/2024 Address:[address], [facility] * Images: * Electronic signature of Patric Doyle MD on 10/25/2024 at 12:32 PM EDT Sign off status: Pending * Provider: Paul Doyle MD Date: 10/25/2024 Generated for Printi ng/Facristyg/eTransmitting on: 10/25/2024 12:32 PM EDT
--- OUTSIDE RECORDS SUMMARY | 2024-10-25 12:32 | XMS_ITS | Clinical Summary ---
Author Organization [facility] Address [address] [place] [address] Phone Care Team Providers Care Performance Improvement Coordinator Name Role Phone Unavailable Primary Care Provider Unavailabl e Encounters Date Type Department Care Team Description 08/26/2024 6:30 PM EDT - 08/26/2024 11:59 PM EDT Hospital Encounter [place] [address] [place] [address] Hyperlipidemia, unspecified Discharge Disposition: Home [...] PM -------- ORIGINAL REPORT -------- Dictation workstation: [id number] Impressions 08/26/2024 8:04 PM EDT 1. Coronary [...] arrington al. JACC 2015 (http://dx.doi.org/10.1016/j.j acc.2015.08.035) Reading Heel Breaster: Dr. Ezra Gupta, Date: 08/26/2024 8:04 pm Signed by: Ezra Gupta 08/26/2024 8:04 PM Dictation workstation: [id number] Narrative 08/26/2024 8:04 PM EDT Interpreted By: Ezra Gupta, STUDY: CT CARDIAC SCORING WO IV CONTRAST; 08/26/2024 6:52 pm INDICATION: Signs/Symptoms:HYPERLIPIDEMIA. COMPARISON: None. ACCESSION NUMBER(S): [id number] ORDERING CLINICIAN: SAY GUTIERREZ TECHNIQUE: Using prospective [...] pm INDICATION: Signs/Symptoms:HYPERLIPIDEMIA. COMPARISON: None. ACCESSION NUMBER(S): [id number] ORDERING CLINICIAN: SAY GUTIERREZ TECHNIQUE: Using prospective [...] et al. JACC 2015 (http://dx.doi.org/10.1016/j.j acc.2015.08.035) Reading Heel Breaster: Dr. Ezra Gupta, Date: 08/26/2024 8:04 pm Signed by: Ezra Gupta 08/26/2024 8:04 PM Dictation workstation: [id number] Say Gutierrez DO IMG CT PROCEDURES Edited Resul t - Final from Last 3 Months
--- OUTSIDE RECORDS SUMMARY | 2024-10-25 12:33 | XMS_ITS | Patient Health Record ---
Author Organization [facility] Address [address] [place] [address] Care Team Providers Care Coat Agent Name Role Phone VivekConstantin Unavailable [phone] Allergies No Known Allergies Results Component Value Reference Range Notes Surgery Scheduling (Not yet reviewed by provider) Interpretation: Performing Lab: Notes/Report: Social Sec number: [id number] Primary Insurance Company: [employer] [facility] Surgeon/Assist: AUGUSTA Surgery Location: [facility] Surgery Date & Time: 10/25/24 Surgery End Time: ONE HOUR Procedure: RIGHT ACHILLES TENDO N REPAIR, [address] Diagnosis: RUPTURE OF RIGHT ACH ILLES TENDON Admission Type: OUTPATIENT Anesthesia Type/CPNB: GENERAL Post-op Appointment Date: 11/08/24 @ 7:50AM Latex Allergy NO Lab Location: [facility] Lab Date/Time: PAT WITH [facility] [place] 10/18/24 @ 11:00AM Forest Management Professor: KYLE MELGAR with diff, BMP, EKG Reviewed date:10/19/2024 09:39:01 AM Interpretation: Performing Lab: Notes/Report: Reason For Referral Reason CAREY.....PLEASE OBTAI N AUTHORIZATION FOR RIGHT ACHILLES TENDON REPAIR Jonathan Steiner 10/18/2024 09:57:13 AM >Cpt code 03480 Diagnosis 1 Rupture of right Ach illes tendon, initial encounter (S86.011A) Referral Organization [facility] Referring Provider First Name Constantin Referring Provider Last Name Vivek Referring Provider Speciality Orthopedic Surgery Referred Organization [facility] Surgery Scheduling Referred Address [address] [place],[address], General Notes Isabela Cohn 09:44:57 AM >NEED SX CODE Jatin CONRAD Chad 10/18/2024 09:57:13 AM >Cpt code 65277 Isabela Cohn 10/18/2024 10:08:32 AM >PER [facility] CODE SERVICE CLERK, NO AUTH REQUIRED MA NOTIFIED REF FAXED TO [place] Referral Priority Urgent Reason APPROVED............ .....PLEASE OBTAIN AUTHORIZATION FOR MRI RIGHT ANKLE Diagnosis 1 Rupture of right Ach illes tendon, initial encounter (S86.011A) Referral Organization [facility] Referring Provider First Name Constantin Referring Provider Last Name Vivek Referring Provider Speciality Orthopedic Surgery Referred Organization [facility] jay Referred Address [place], [place], Procedure 1 MRI Joint Lower Ext w/o Dye ([address]007) General Notes Isabela Cohn 025 09:33:54 AM >APPROVED PER [facility] AUTH #[id number] VALID 10/18/2024-12/02/2024 COPY IN CHART MA NOTIFIED REF FAXED TO Lalit CASTELAN Amy 10/18/2024 09:38:00 AM >SECONDARY IS A SUPPLEMENT, Hiral Reed 10/18/2024 10:13:32 AM > Faxed order to [facility] Referral Priority Stat Social History Tobacco Use: [...] 10/18/2024 Encounters Encounter Location Date Provider Diagnosis [facility] [address] [place] [address] [place] [address] 10/18/2024 Constantin Vivek Rupture of right Achilles [...] MRI : Ankle W/O Contrast Right - 48040 0 10/18/2024 Surgery Scheduling 10/18/2024 Next Appt Details Provider Name:Constantin Rodriguez and, 10/25/2024 02:00:00 PM, [address] [place], [address], Provider Name:Constantin Rodriguez and, 11/08/2024 07:50:00 AM, [address] [facility], [facility], [place], [address], Insurance Providers Payer Name Payer Address Payer Phone Subscriber Number Group Number Insured Name Patient Relationship to Insured Coverage Start Date Coverage End Date [facility] [address] [address] [place] [address] [id number] Syed Ward Self - patient is the insured 5 5 [facility] [address] [place] [address] [id number] Syed Ward Self - patient is the insured 5
--- OUTSIDE RECORDS SUMMARY | 2024-10-25 12:33 | XMS_ITS | Encounter Summary ---
Author Organization [facility] Address [address] 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 Name Role Phone Unavailable Primary Care Provider Unavailabl e Reason for Referral * Imaging (Routine) - Pending Review Specialty Diagnoses / Procedures Referred By Contakila t Referred To Contact Radiology Diagnoses Hyperlipidemia, unspecified Procedures CT cardiac scoring wo IV contrast Say Gutierrez DO [address] [place] [address] Phone: tel: fax: Referral ID Status Reason Start Date Expiration Date Visits Requested Visits Authorized [id number] Pending Review Perform Procedure 07/09/2024 07/09/2025 1 1 Encounter Details Date Type Department Care Team (Late st Contact Info) Description 07/09/2024 Transcribe Orders [facility] [address] [place] [address] Say Gutierrez DO [address] [place], [place] [id number] Hyperlipidemia, unspecified (Primary Dx) Social History Tobacco [...] PM -------- ORIGINAL REPORT -------- Dictation workstation: [id number] Impressions 08/26/2024 8:04 PM EDT 1. Coronary [...] arrington al. JACC 2015 ([email or web address]) Reading Gallery Host: Dr. Ezra Gupta, Date: 08/26/2024 8:04 pm Signed by: Ezra Gupta 08/26/2024 8:04 PM Dictation workstation: [id number] Narrative 08/26/2024 8:04 PM EDT Interpreted By: Ezra Gupta, STUDY: CT CARDIAC SCORING WO IV CONTRAST; 08/26/2024 6:52 pm INDICATION: Signs/Symptoms:HYPERLIPIDEMIA. COMPARISON: None. ACCESSION NUMBER(S): [id number] ORDERING CLINICIAN: SAY GUTIERREZ TECHNIQUE: Using prospective [...] pm INDICATION: Signs/Symptoms:HYPERLIPIDEMIA. COMPARISON: None. ACCESSION NUMBER(S): [id number] ORDERING CLINICIAN: SAY GUTIERREZ TECHNIQUE: Using prospective [...] arrington al. JACC 2014 ([email or web address]) Reading Gallery Host: Dr. Ezra Gupta, Date: 08/26/2024 8:04 pm Signed by: Ezra Gupta 08/26/2024 8:04 PM Dictation workstation: [id number] Say Gutierrez DO IMG CT PROCEDURES Edited Resul t - Final documented in this encounter Visit Diagnoses Diagnosis Hyperlipidemia, unspecified- Primary Hyperlipidemia, unspecified documented in this encounter
[2024-10-25 12:43] LABS: Basophils Percent Auto 0.5 % (0.2-2.0); Eosinophils Absolute Auto 0.1 10^3/uL (0.0-0.7); Eosinophils Percent Auto 1.6 % (0.9-7.0); Hematocrit 47.6 % (42.0-54.0); Hemoglobin 16.2 g/dL (14.0-18.0); Immature Granulocytes Abs Auto 0.01 10^3/uL (0.00-0.03); Immature Granulocytes Pct Auto 0.3 % (0.0-0.5); Lymphocytes Absolute Auto 1.3 10^3/uL (1.2-3.8); Lymphocytes Percent Auto 33.2 % (20.5-60.0); Mean Corpuscular Hemoglobin 29.3 pg (25.9-34.0); Mean Corpuscular Volume 86.1 fL (80.0-94.0); Mean Platelet Volume 10.8 fL (9.5-13.5); Monocytes Absolute Auto 0.4 10^3/uL (0.3-0.8); Monocytes Percent Auto 10.5 % (1.7-12.0); Neutrophils Absolute Auto 2.1 10^3/uL (1.4-6.5); Neutrophils Percent Auto 53.9 % (43.0-75.0); Platelet Count 156 10^3/uL (150-450); Red Blood Count 5.53 10^6/uL (4.70-6.10); Red Cell Distribution Width 13.2 % (11.0-15.0); White Blood Count 3.8 10^3/uL (4.0-11.0)
[2024-10-25] MEDS: LACTATED RINGER'S SOLUTION 1,000 ML 50 ML IV ×2 (13:28→14:42)
[2024-10-25] MEDS: CEFAZOLIN SODIUM 2 GM/50 ML D5W PREMIX IV (14:00)
--- NOTE | 2024-10-25 14:14 | PC.NURSE ---
Patient consented by Dr. Zelaya for block to right lower extremity preop. Patient was placed on monitors and O2 per protocol. Time out performed per protocol. Patient medicated per Dr. Zelaya Bedside ultrasound was used to note areas when blocked. Site one started at 1347 and ended and 1349 and site two started at 1352 and ended at 1356. Patient remained on monitors and O2 until taken to the OR. Patient tolerated procedure well. Voiced no complaints or concerns.
--- NOTE | 2024-10-25 15:28 | P.ORPRC_ITS ---
Procedure Note Date of procedure: 10/25/24 Pre-op diagnosis: Right Achilles tendon tear Post-op diagnosis: same as pre-op Procedure: Operation: Right Achilles repair Detailed description of procedure: After informed consent was obtained the patient was brought to the operating room where general anesthetic was administered. Preoperatively regional block was placed. A well-padded proximal thigh tourniquet was placed. The patient was placed in the prone position with all bony prominences well-padded. The right leg was prepped and draped in the usual sterile fashion. The leg was exsanguinated and the tourniquet was inflated to 275 mmHg. 10 cm incision was made overlying the muscle tendon junction of the Achilles tendon. Blunt dissection was carried down through soft tissue in order to preserve several nerve. Tear was identified and part of the tear was tendon tendon but the majority was muscle tendon. There was a small area less than 10% where not completely torn. An Arthrex suture tape was placed in a running locking fashion in the distal portion of the tear starting at the tear progressing distally medially and then back proximally on the lateral side. In a similar fashion a running locking stitch was placed similarly for 3 cm proximal and distal along the proximal portion of the tendon and muscle. These were then tied together as solid repair was achieved. This was oversewn with 3- 0 Vicryl. Peritenon was repaired with a 2-0 Vicryl suture in a running fashion. Wound was closed with observable suture layer. Steri-Strips and sterile dressing were placed. A well-padded dressing was placed and a splint with stirrups made of fiberglass was placed in resting equinus. Turning was deflated. Patient was awakened and brought to the recovery room in stable condition. There were no intraoperative or immediate postoperative comp lications. Anesthesia: GETA and regional Surgeon: Constantin Doyle Estimated blood loss (mL): 5 Pathology: none sent Condition: stable Disposition: PACU
== END 2024-10-25 16:17 | disposition home or self-care (01) ==
PROVIDERS: Anesthesiology; PCP Family Medicine; Visit Provider Orthopaedic Surgery
PROC: (CPT 1472; principal; 2024-10-25 14:00)
DX: S86.011A Strain of right Achilles tendon, initial encounter (principal); X50.0XXA Overexertion from strenuous movement or load, initial encounter; G47.33 Obstructive sleep apnea (adult) (pediatric)
CPT/HCPCS: 27650; 36415; 64445; 64447; 85025; J0131; J0690; J1100; J1885; J2250; J2405; J2704; J2795; J3010

== ENCOUNTER 2024-12-23 08:52 | Outpatient (RCR) | payer SELFPAY | END 2025-03-24 07:34 | disposition home or self-care (01) | LOC: PT 08:52 | PROVIDERS: PCP Family Medicine; Visit Provider Orthopaedic Surgery | DX: S86.011D Strain of right Achilles tendon, subsequent encounter (principal) | CPT/HCPCS: 97110; 97140; 97161; 97530 ==